=== PATIENT | female | born 1950 | race Caucasian/White ===

== ENCOUNTER → 2018-05-07 06:09 | Outpatient (CLI) | payer MEDICARE, MEDICAID, SELFPAY ==
--- NOTE | 2018-05-07 06:12 | DI.RAD.S_ITS ---
PROCEDURE: XR CERVICAL SPINE 2V OR 3V INDICATIONS: Neck pain TECHNIQUE: 3 view(s) of the cervical spine were acquired. COMPARISON: [facility], MR, CERVICAL SPINE W/O CONTRAST, 08/03/2014, 16:06. FINDINGS: Bones: No fractures or dislocations to the C7-T1 level. The lateral masses of C1 appear intact on the odontoid view. No suspicious bony lesions. There is severe disc space narrowing at C5-6, C6-7. There is trace anterolisthesis of C4 on C5, retrolisthesis of C5 on C6. Small anterior osteophytes are present. Soft tissues: No prevertebral soft tissue swelling. IMPRESSION: Multilevel degenerative changes, slightly progressive compared to prior exam. Dictated by: Melita Baltazar M.D. on 05/07/2018 at 12:23 Approved by: Melita Baltazar M.D. on 05/07/2018 at 13:26
--- NOTE | 2018-05-07 06:12 | DI.RAD.S_ITS ---
PROCEDURE: XR LUMBAR SPINE MIN 4V INDICATIONS: Low back pain TECHNIQUE: 5 views of the lumbar spine were acquired. COMPARISON: [facility], , L-SPINE 2-3 VIEWS, 11/30/2013, 8:55. FINDINGS: Bones: 5 nonrib-bearing vertebrae are present. There is trace retrolisthesis of L1 on L2, L2 on L3. Moderate to severe multilevel disc space narrowing is present. Moderate foraminal narrowing is noted at L5-S1. Overall, minimal interval degenerative progression. No vertebral body compression fractures. No suspicious bony lesions. Left hip arthroplasty is present. Soft tissues: Overlying bowel gas pattern is normal. No suspicious soft tissue calcifications. Oblique images: No pars defects. IMPRESSION: Degenerative changes as above. Dictated by: Melita Baltazar M.D. on 05/07/2018 at 12:20 Approved by: Melita Baltazar M.D. on 05/07/2018 at 12:23
== END ==
PROVIDERS: PCP Physician Assistant; Visit Provider Physician Assistant
DX: M48.07 Spinal stenosis, lumbosacral region (principal); M48.061 Spinal stenosis, lumbar region without neurogenic claudication; M51.37 Other intervertebral disc degeneration, lumbosacral region; M99.83 Other biomechanical lesions of lumbar region; M50.30 Other cervical disc degeneration, unspecified cervical region; G89.4 Chronic pain syndrome; Z96.642 Presence of left artificial hip joint
CPT/HCPCS: 72040; 72110

== ENCOUNTER → 2018-08-21 12:28 | Outpatient (CLI) | payer MEDICARE, MEDICAID, SELFPAY ==
[2018-08-21 13:26] LABS: Erythrocyte Sedimentation Rate 6 MM/HR (0-20)
[2018-08-21 13:34] LABS: HEMOLYSIS < 15 (0-50); Iron 60 ug/dL (37-170)
[2018-08-21 13:36] LABS: Alanine Aminotransferase 33 IU/L (9-52); Albumin 4.4 g/dL (3.5-5.0); Albumin Globulin Ratio 1.6 (1.0-2.8); Alkaline Phosphatase 67 U/L (38-126); Aspartate Aminotransferase 23 IU/L (14-36); BUN Creatinine Ratio 27.5 (6-22); Bilirubin Total 0.3 mg/dL (0.2-1.3); Blood Urea Nitrogen 22 mg/dL (7-17); Calcium 9.5 mg/dL (8.4-10.2); Carbon Dioxide 27 mmol/L (22-32); Chloride 103 mmol/L (98-107); Estimated Glomerular Filt Rate > 60.0 mL/min (>60); Globulin 2.8 g/dL (1.7-4.1); Glucose 110 mg/dL (80-110); HEMOLYSIS < 15 (0-50); Potassium 4.4 mmol/L (3.4-5.1); Sodium 138 mmol/L (137-145); Total Protein 7.2 g/dL (6.3-8.2)
[2018-08-21 13:45] LABS: Percent Iron Saturation 23 % (15-50); Total Iron Binding Capacity 259 ug/dL (265-497); Transferrin 209 mg/dL (206-381)
[2018-08-21 14:11] LABS: Ferritin 36.5 ng/mL (11.1-264)
[2018-08-21 14:50] LABS: Vitamin D 25 Hydroxy (D3) 32.6 ng/mL (30.0-100.0)
[2018-08-23 19:32] LABS: HLA B27 NEGATIVE (Negative)
== END ==
PROVIDERS: PCP Physician Assistant; Visit Provider Physician Assistant
DX: M25.50 Pain in unspecified joint (principal); M51.37 Other intervertebral disc degeneration, lumbosacral region; M79.10 Myalgia, unspecified site; M81.0 Age-related osteoporosis without current pathological fracture; R53.83 Other fatigue
CPT/HCPCS: 36415; 80053; 82306; 82728; 83540; 83550; 85651; 86812

== ENCOUNTER → 2018-10-30 08:37 | Outpatient (CLI) | payer MEDICARE, MEDICAID, SELFPAY ==
[2018-11-01 14:53] LABS: Fecal Immunochemical Test NOT DETECTED (NOT DETECTED)
== END ==
PROVIDERS: PCP Physician Assistant; Visit Provider Physician Assistant
DX: Z12.11 Encounter for screening for malignant neoplasm of colon (principal)
CPT/HCPCS: 82274